=== PATIENT | male | born 1995 | race Asian ===

== ENCOUNTER 2017-04-04 15:23 | Emergency (ER) | payer OTHER ==
[~2017-04-04] VITALS: Ht 167.6 cm; Wt 99.8 kg
[2017-04-04 15:29] VITALS: TEMP 98.6
[2017-04-04 15:57] LABS: PLATELET COUNT 206 K/uL (142-355)
[2017-04-04 16:03] LABS: POTASSIUM 3.9 mmol/L (3.6-5.2); SODIUM 134 mmol/L (136-145)
[2017-04-04 19:46] VITALS: BP 129/88
== END 2017-04-04 19:51 | disposition home or self-care (01) ==
LOC: ED 15:23
DX: R10.9 Unspecified abdominal pain (principal); R11.2 Nausea with vomiting, unspecified
CPT/HCPCS: 36415; 80053; 82150; 83690; 85027; 99283; J2405

== ENCOUNTER → 2017-04-13 10:16 | Outpatient (CLI) | payer OTHER | END | disposition home or self-care (01) | LOC: AMB 10:16 | DX: Z04.1 Encounter for examination and observation following transport accident (principal) ==

== ENCOUNTER 2017-09-24 09:01 | Outpatient (CLI) | payer OTHER | END 2017-09-24 09:06 | disposition short-term general hospital (02) | LOC: AMB 09:01 | DX: K08.89 Other specified disorders of teeth and supporting structures (principal) | CPT/HCPCS: A0425; A0427 ==

== ENCOUNTER 2017-09-24 09:10 | Emergency (ER) | payer OTHER ==
[~2017-09-24] VITALS: Ht 167.6 cm; Wt 81.6 kg
[2017-09-24 09:10] VITALS: TEMP 98.7
[2017-09-24 09:42] VITALS: BP 136/74
== END 2017-09-24 09:42 | disposition home or self-care (01) ==
LOC: ED 09:10
DX: K02.9 Dental caries, unspecified (principal)
CPT/HCPCS: 99281

== ENCOUNTER 2017-10-13 03:26 | Emergency (ER) | payer OTHER ==
[~2017-10-13] VITALS: Ht 162.6 cm; Wt 95.3 kg
[2017-10-13 04:24] LABS: PLATELET COUNT 195 K/uL (142-355)
[2017-10-13 04:35] LABS: POTASSIUM 3.2 mmol/L (3.6-5.2)
[2017-10-13 05:15] VITALS: BP 109/63; TEMP 99.5
== END 2017-10-13 05:18 | disposition home or self-care (01) ==
LOC: ED 03:26
DX: G43.909 Migraine, unspecified, not intractable, without status migrainosus (principal)
CPT/HCPCS: 36415; 80053; 80307; 81000; 85027; 96365; 96374; 96375; 99284; J1100; J1200; J1885; J2405

== ENCOUNTER 2018-01-12 00:13 | Emergency (ER) | payer OTHER ==
[~2018-01-12] VITALS: Ht 160 cm; Wt 104.3 kg
[2018-01-12 00:54] VITALS: BP 128/86; TEMP 97.3
== END 2018-01-12 00:55 | disposition home or self-care (01) ==
LOC: ED 00:13
DX: K08.89 Other specified disorders of teeth and supporting structures (principal)
CPT/HCPCS: 99282; J1885

== ENCOUNTER 2019-03-15 20:55 | Emergency (ER) | payer OTHER ==
[~2019-03-15] VITALS: Ht 167.6 cm; Wt 99.8 kg
[2019-03-15 21:47] LABS: PLATELET COUNT 276 K/uL (142-355)
[2019-03-15 21:56] LABS: POTASSIUM 3.2 mmol/L (3.6-5.2)
[2019-03-15 22:39] VITALS: BP 119/77; TEMP 99
== END 2019-03-15 22:39 | disposition home or self-care (01) ==
LOC: ED 20:55
PROVIDERS: Emergency Medicine
DX: R10.10 Upper abdominal pain, unspecified (principal); K59.00 Constipation, unspecified
CPT/HCPCS: 36415; 80053; 82150; 83690; 85027; 99283

== ENCOUNTER 2019-08-24 03:44 | Emergency (ER) | payer OTHER ==
[~2019-08-24] VITALS: Ht 167.6 cm; Wt 99.8 kg
[2019-08-24 04:20] VITALS: BP 158/79; TEMP 97.9
== END 2019-08-24 04:20 | disposition home or self-care (01) ==
LOC: ED 03:44
DX: K08.89 Other specified disorders of teeth and supporting structures (principal); K02.9 Dental caries, unspecified; F17.210 Nicotine dependence, cigarettes, uncomplicated
CPT/HCPCS: 96372; 99283; J0696; J1885

== ENCOUNTER 2022-12-05 20:10 | Emergency (ER) | payer OTHER ==
[~2022-12-05] VITALS: Ht 167.6 cm; Wt 92.5 kg
[2022-12-05 20:10] VITALS: BP 119/72; TEMP 98.5
[2022-12-05 20:58] LABS: PLATELET COUNT 181 K/uL (142-355)
[2022-12-05 21:01] LABS: POTASSIUM 3.7 mmol/L (3.6-5.2); SODIUM 138 mmol/L (136-145)
== END 2022-12-06 00:34 | disposition home or self-care (01) ==
LOC: ED 20:10
PROVIDERS: Family Medicine
DX: F41.9 Anxiety disorder, unspecified (principal); R45.6 Violent behavior
CPT/HCPCS: 36415; 80053; 80143; 80179; 80307; 81002; 85027; 99285